=== PATIENT | male | born 1955 | race Asian ===

== ENCOUNTER → 2023-12-24 16:07 | Outpatient (REF) | payer MEDICARE, SELFPAY | LOC: RAD 16:07 | PROVIDERS: ATTENDING PHYSICIAN Family Medicine | DX: R05.2 Subacute cough (principal) | CPT/HCPCS: 71046 ==

== ENCOUNTER 2025-07-16 06:18 | Day surgery (SDC) | payer MEDICARE, SELFPAY ==
[2025-07-16 07:32] LABS: Glucose - Point of Care 174 mg/dl (70-99)
== END 2025-07-16 09:10 | disposition home or self-care (01) ==
LOC: GI 06:18
PROVIDERS: ATTENDING PHYSICIAN Specialist
DX: Z12.11 Encounter for screening for malignant neoplasm of colon (principal); K57.30 Diverticulosis of large intestine without perforation or abscess without bleeding; K63.5 Polyp of colon; Z86.0101 Personal history of adenomatous and serrated colon polyps
CPT/HCPCS: 45380; 82962; 88305